=== PATIENT | female | born 1985 | race Hispanic/Latino ===

== ENCOUNTER 2017-07-17 16:37 | Emergency (ER) | payer OTHER, BC ==
[2017-07-17 16:38] VITALS: BMI 32.5
[2017-07-17 16:43] VITALS: RESP 16
--- NOTE | 2017-07-17 16:58 | C.PDOC ---
History Of Present Illness 32-year-old female, presents to the emergency department with complaints of fingerstick to left thumb, from another patient while in OR, about an hour ago. Patient immediately cleaned and washed the area, using peroxide and betadine. Denies any other complaints at this time. Time Seen by Provider: 07/17/17 16:57 Chief Complaint (Nursing): Needle Stick History Per: Patient History/Exam Limitations: no limitations Onset/Duration Of Symptoms: Hrs (1) Past Medical History Reviewed: Historical Data, Nursing Documentation, Vital Signs Vital Signs: Last Vital Signs Temp 98.5 F 07/17/17 16:42 Pulse 78 07/17/17 16:42 Resp 16 07/17/17 16:42 BP 106/69 07/17/17 16:42 Pulse Ox 97 07/17/17 17:16 Surgical History: Tonsillectomy Family History: States: No Known Family Hx - Social History Hx Alcohol Use: Yes Hx Substance Use: No - Immunization History Hx Tetanus Toxoid Vaccination: No Hx Influenza Vaccination: Yes Hx Pneumococcal Vaccination: No Review Of Systems Constitutional: Positive for: Other (fingerstick, left first digit) Physical Exam - Physical Exam Appears: Non-toxic, No Acute Distress Skin: Normal Color, Warm, Dry Neurological/Psych: Oriented x3, Normal Speech ED Course And Treatment O2 Sat by Pulse Oximetry: 97 (RA) Pulse Ox Interpretation: Normal Progress - Re-Evaluation Re-evaluation Note: FS from Patient: [id number] 07/17/17 18:10 RESULTS TO BE FU OF SOURCE. PT REQUESTING DC, DEFER HIV PROPH @ THIS TIME. Disposition Counseled Patient/Family Regarding: Diagnosis, Need For Followup - Disposition Referrals: [facility] [Provider Group] Disposition: HOME/ ROUTINE Disposition Time: 18:11 Condition: GOOD Forms: [facility] (Croatian), General Discharge Instructions, Work Excuse - Clinical Impression Clinical Impression: Needle stick injury - Scribe Statement The provider has reviewed the documentation as recorded by the Scribe (Guillermo Hill) All medical record entries made by the Scribe were at my direction and personally dictated by me. I have reviewed the chart and agree that the record accurately reflects my personal performance of the history, physical exam, medical decision making, and the department course for this patient. I have also personally directed, reviewed, and agree with the discharge instructions and disposition.
[2017-07-17 18:04] LABS: BASO % 0.3 % (0.0-2.0); EOS # 0.1 K/uL (0.0-0.7); EOS % 0.9 % (0.0-4.0); HEMOGLOBIN 12.4 g/dL (11.0-16.0); LYMPH # 3.1 K/uL (1.0-4.3); LYMPH % 28.1 % (20.0-40.0); MEAN CELL VOLUME 89.9 fL (81.0-99.0); MEAN CORPUSCULAR HEMOGLOBIN 30.6 pg (27.0-31.0); MEAN CORPUSCULAR HGB CONC 34.1 g/dL (33.0-37.0); MEAN PLATELET VOLUME 8.1 fL (7.2-11.7); MONO # 0.7 K/uL (0.0-0.8); MONO % 6.6 % (0.0-10.0); NEUT % 64.1 % (50.0-75.0); RBC 4.05 Mil/uL (3.80-5.20); RED CELL DISTRIBUTION WIDTH 13.3 % (11.5-14.5)
[2017-07-17 18:07] LABS: URINE AMORPHOUS SEDIMENT FEW /ul (<OCC); URINE BILIRUBIN NEGATIVE (NEGATIVE); URINE BLOOD NEGATIVE (NEGATIVE); URINE CLARITY Hazy (Clear); URINE COLOR Yellow (YELLOW); URINE GLUCOSE (UA) NORMAL (Normal); URINE LEUKOCYTE ESTERASE NEG Leu/uL (Negative); URINE PROTEIN NEGATIVE (NEGATIVE); URINE UROBILINOGEN NORMAL mg/dL (0.2-1.0)
[2017-07-17 18:12] LABS: ALB/GLOB RATIO 1.2 (1.0-2.1); ALBUMIN 4.3 g/dL (3.5-5.0); ALT/SGPT 9 U/L (9-52); AMYLASE 65 U/L (30-110); AST/SGOT 24 U/L (14-36); BLOOD UREA NITROGEN 13 mg/dL (7-17); CALCIUM 9.2 mg/dl (8.6-10.4); GFR AFRICAN-AMERICAN > 60; GFR NON-AFRICAN AMERICAN > 60
[2017-07-17 18:13] LABS: HCG,QUALITATIVE URINE NEGATIVE (NEGATIVE)
[2017-07-17 18:26] VITALS: BP 110/72; PULSE 76; TEMP 98.6; O2SAT 98
[2017-07-17 18:44] LABS: HEPATITIS B SURFACE AG Negative (NEGATIVE)
[2017-07-17 18:50] LABS: HEPATITIS A IGM NEGATIVE (NEGATIVE); HEPATITIS B CORE AB NEGATIVE (NEGATIVE)
[2017-07-17 19:05] LABS: HEPATITIS C ANTIBODY NEGATIVE (NEGATIVE)
== END 2017-07-17 18:31 | disposition home or self-care (01) ==
LOC: C.ER 16:37
DX: S69.92XA Unspecified injury of left wrist, hand and finger(s), initial encounter (principal); W46.0XXA Contact with hypodermic needle, initial encounter; Y92.89 Other specified places as the place of occurrence of the external cause; Y99.0 Civilian activity done for income or pay